=== PATIENT | female | born 1975 | race Caucasian/White ===

== ENCOUNTER → 2018-04-04 | Outpatient (CLI) | payer BC ==
[~2018-04-04] VITALS: Ht 171.4 cm; Wt 149.6 kg
[~2018-04-04] MED LIST: BUPROPION HCL150 M1 PO; CELEXA20 MG PO; CITALOPRAM HBR20 M1 PO; COUMADIN5 MG PO; DULCOLAX5 MG PO; HYDROCHLOROTH12.5 M3 PO; LOVENOX60 MG/0.6 PO; LOVENOX80 MG/0.8 SC; NORCO 5/3251 TABLET PO; OMEPRAZOLE20 M3 PO; OMEPRAZOLE40 M1 PO; PHENTERMINE HCL30 MG PO; SENNA S TABLET1 EACH PO; VALIUM5 MG PO; WELLBUTRIN SR150 MG PO; WELLBUTRIN XL150 MG PO; ZITHROMAX Z-PA250 MG PO
== END | disposition home or self-care (01) ==
LOC: AMB 02-21 12:45
PROC: 0DB68ZX Excision of Stomach, Via Natural or Artificial Opening Endoscopic, Diagnostic (ICD-10-PCS; principal; 2018-04-04)
DX: K44.9 Diaphragmatic hernia without obstruction or gangrene (principal); K29.50 Unspecified chronic gastritis without bleeding; K31.7 Polyp of stomach and duodenum
CPT/HCPCS: 88305; 88342 TC; 93005